=== PATIENT | female | born 1955 | race African-American/Black ===

== ENCOUNTER 2022-09-01 11:58 | Emergency (ER) | payer OTHER, MEDICAID ==
[~2022-09-01] VITALS: Ht 170.2 cm; Wt 72.7 kg
[2022-09-01 13:16] VITALS: BP 124/93
[2022-09-01] MEDS ORDERED: KETOROLAC TROMETH 60MG/2ML VIAL IM ONE (13:45)
[2022-09-01] MEDS ORDERED: METH750T22 PO (14:51)
[2022-09-01] MEDS ORDERED: IBUP800T27 PO (14:51)
== END 2022-09-01 15:00 | disposition home or self-care (01) ==
LOC: ER 11:58
DX: S16.1XXA Strain of muscle, fascia and tendon at neck level, initial encounter (principal); S39.012A Strain of muscle, fascia and tendon of lower back, initial encounter; S46.911A Strain of unspecified muscle, fascia and tendon at shoulder and upper arm level, right arm, initial encounter; M50.30 Other cervical disc degeneration, unspecified cervical region; V43.52XA Car driver injured in collision with other type car in traffic accident, initial encounter; Y93.89 Activity, other specified; Y92.488 Other paved roadways as the place of occurrence of the external cause; Y99.8 Other external cause status
CPT/HCPCS: 72040; 72100; 73030; 96372; 99284; J1885